=== PATIENT | female | born 1935 | race Caucasian/White ===

== ENCOUNTER 2016-11-10 12:54 | Observation (INO) ==
--- NOTE | 2016-11-10 13:03 | Emergency Department Note ---
Disposition Clinical Impression: Fall, Frail elderly, Right acetabular fracture, Osteoarthritis, Osteoporosis, Hip effusion, right, Hypokalemia, Contusion of right upper extremity, Elevated blood pressure reading, Cardiomegaly Disposition: Admitted As Inpatient Referrals: NO,PCP [Primary Care Provider] - Forms: ED Satisfaction Letter General Adult HPI - General Chief complaint: ED Extremity Injury, Lower Stated complaint: right leg pain, right hand pain Time Seen by Provider: 11/10/16 13:01 - History of Present Illness HPI Narrative: 81-year-old female was walking her dog, she slipped and fell onto her right side. She complains of hip and thigh pain. The patient describes a simple fall with No mealy prior to arrival. She is unable to bear weight on her right lower extremity. The patient is not anticoagulated. There is no history of head pain neck pain back pain chest pain shortness of breath or abdominal pain. The left lower external pain or left upper extremity pain. No bowel or bladder dysfunction or weakness numbs the arms or legs described. The patient reports she bumped her elbow but does not think she broke anything in her right upper extremity. The patient was in her usual state of health prior to the event. There is no history of syncope. No history of coughing up blood. No history of vomiting diarrhea or any other acute complaint or concern elicited. - Related Data Home Medications Medication Instructions Recorded Confirmed Atorvastatin [Lipitor] 10 mg PO HS 11/10/16 11/10/16 Lisinopril [Zestril] 5 mg PO DAILY 11/10/16 11/10/16 hydroCHLOROthiazide 12.5 mg PO DAILY 11/10/16 11/10/16 [Hydrochlorothiazide] Allergies Allergy/AdvReac Type Severity Reaction Status Date / Time morphine Allergy Nausea Verified 11/10/16 13:03 All systems ED: reviewed and negative except as stated. Physical Exam - General Limitations: no limitations General appearance: alert, anxious - Head Head exam: atraumatic, normocephalic, normal inspection - Eye Eye exam: Present: normal appearance, PERRL, EOMI. Absent: scleral icterus, conjunctival injection, nystagmus, miosis, mydriasis, periorbital swelling - ENT ENT exam: normal exam, normal oropharynx, mucous membranes moist, TM's normal bilaterally, normal external ear exam - Neck Neck exam: Present: normal inspection, full ROM, trachea midline. Absent: tenderness - Chest Chest inspection: Present: symmetric chest wall rise. Absent: tenderness - Respiratory Respiratory exam: Present: normal lung sounds bilaterally. Absent: respiratory distress, wheezes, stridor, accessory muscle use, prolonged expiratory phase - Cardiovascular Cardiovascular exam: Present: regular rate, normal rhythm, normal heart sounds - Abdominal Exam Abdominal exam: Present: soft, Non-Tender, normal bowel sounds. Absent: tenderness, distention, guarding, rebound, rigidity, trauma - Extremities Exam Extremities exam: Present: normal capillary refill. Absent: pedal edema, calf tenderness - Expanded Upper Extremity Exam Shoulder exam: Present: normal inspection, full ROM Arm exam: Present: normal inspection, full ROM Elbow exam: Present: full ROM, abrasion Forearm/Wrist exam: Present: normal inspection, full ROM Hand exam: Present: normal inspection, full ROM - Expanded Lower Extremity Exam Hip/Pelvis exam: Present: tenderness, pelvis stable. Absent: swelling, abrasion , external rotation, internal rotation, shortening Knee exam: Present: normal inspection, full ROM, tenderness. Absent: swelling, abrasion, ecchymosis Lower leg exam: Present: normal inspection, full ROM Ankle exam: Present: normal inspection, full ROM Foot/toe exam: Present: normal inspection, full ROM, other (The left upper extremity and left lower extremity are warm and well perfused and show full range of motion throughout and no evidence of trauma. The right lower extremity shows significant pain in the thigh and knee and hip areas to palpation and movement. There is no evidence of significant injury to the right upper extremity minor abrasion at the elbow but full range of motion throughout the major joints. All 4 extremities are warm and well perfused without cyanosis or significant edema there is no evidence of neurovascular or neuromuscular compromise in any extremity.) Neurovascular/Tendon exam: Present: normal capillary refill. Absent: pulse deficit, motor deficit, sensory deficit, tendon deficit, extremity cold to touch , pallor - Back Exam Back exam: Present: normal inspection, full ROM. Absent: tenderness, CVA tenderness (R), CVA tenderness (L), vertebral tenderness - Neurological Exam Neurological exam: Present: alert, oriented X3, CN II-XII intact. Absent: motor sensory deficit - Psychiatric Psychiatric exam: Present: normal affect, normal mood - Skin Skin exam: Present: warm, dry, intact, normal color. Absent: cyanosis, diaphoresis, erythema, pallor, mottled Course Vital Signs Temperature 97.6 F 11/10/16 12:55 Pulse Rate 64 11/10/16 12:55 Respiratory Rate 28 11/10/16 12:55 Blood Pressure 103/49 11/10/16 12:55 O2 Sat by Pulse Oximetry 98 11/10/16 12:55 Temperature 97.6 F 11/10/16 12:55 Pulse Rate 72 11/10/16 17:42 Respiratory Rate 18 11/10/16 17:42 Blood Pressure 180/75 11/10/16 17:42 O2 Sat by Pulse Oximetry 98 11/10/16 17:42 Oxygen Delivery Oxygen Delivery Room Air Medical Decision Making - MDM Narrative Medical decision making narrative: The patient is elderly, she sustained a hip injury with what appears to be a right hip effusion and acetabular fracture. There is no report of displacement. She may have also experienced some groin strain. The patient is unable to stand and ambulate. She has significant pain and is unable to bear weight. Given her age, acute injury, and ataxia, I on it would be appropriate to admit the patient to the hospital for observation and pain control measures with secondary orthopedic consult, and PT/OT consultations. The patient is from [place] of town. She has no ability to care for herself in the short-term. I have discussed the case with the hospitalist on-call who has accepted the patient to their care. - Lab Data Lab results reviewed: Yes I reviewed the patient's lab results. Result diagrams: 11/10/16 13:21 11/10/16 13:21 Lab Results 11/10/16 11/10/16 11/10/16 Range/Units 13:21 13:21 13:21 WBC 5.8 (4.3-11.1) K/mcL RBC 4.27 (3.82-4.97) M/mcL Hgb 12.7 (11.5-15.4) g/dL Hct 37.7 (35.3-44.9) % MCV 88.3 (83.0-100.0) fL MCH 29.7 (28.0-33.3) pg MCHC 33.7 (31.6-35.5) g/dL RDW 13.2 (11.5-14.5) % Plt Count 180 (140-400) K/mcL MPV 10.2 (9.4-12.4) fL Immature Gran % 0.3 (0-4) % Seg Neutrophils % 62.8 % Lymphocytes % 25.4 % Monocytes % 8.9 % Eosinophils % 1.6 % Basophils % 1.0 % Neutrophils # 3.6 (1.6-8.9) K/mcL Lymphocytes # 1.5 (0.6-4.6) K/mcL Monocytes # 0.5 (0.0-1.3) K/mcL Eosinophils # 0.1 (0.0-0.6) K/mcL Basophils # 0.1 (0.0-0.2) K/mcL PT 11.3 (9.4-12.1) Seconds INR 1.0 APTT 24.8 L (26.0-36.0) Seconds Sodium 139 (136-145) mEq/L Potassium 3.4 L (3.5-4.5) mEq/L Chloride 107 (98-109) mEq/L Carbon Dioxide 22 (19-29) mEq/L BUN 9 (7-20) mg/dL Creatinine 0.94 (0.57-1.11) mg/dL Est GFR ( Amer) > 60 (> 60) Est GFR (Non-Af Amer) 57 L (> 60) BUN/Creatinine Ratio 10 (6-26) Glucose 158 H (70-99) mg/dL Calculated Osmolality 290 (280-300) Calcium 9.5 (8.6-10.8) mg/dL Total Bilirubin 0.8 (0.2-1.2) mg/dL Direct Bilirubin 0.4 (0.0-0.5) mg/dL Indirect Bilirubin 0.4 (0.0-1.2) mg/dL AST 18 (5-34) Units/L ALT 22 (0-55) Units/L Alkaline Phosphatase 102 (38-126) Units/L Troponin I (0-0.03) ng/mL Serum Total Protein 7.2 (6.0-8.3) g/dL Albumin 3.5 (3.5-5.0) g/dL Globulin 3.7 H (2.4-3.5) g/dL Albumin/Globulin Ratio 0.9 L (1.1-2.2) 11/10/16 Range/Units 13:21 WBC (4.3-11.1) K/mcL RBC (3.82-4.97) M/mcL Hgb (11.5-15.4) g/dL Hct (35.3-44.9) % MCV (83.0-100.0) fL MCH (28.0-33.3) pg MCHC (31.6-35.5) g/dL RDW (11.5-14.5) % Plt Count (140-400) K/mcL MPV (9.4-12.4) fL Immature Gran % (0-4) % Seg Neutrophils % % Lymphocytes % % Monocytes % % Eosinophils % % Basophils % % Neutrophils # (1.6-8.9) K/mcL Lymphocytes # (0.6-4.6) K/mcL Monocytes # (0.0-1.3) K/mcL Eosinophils # (0.0-0.6) K/mcL Basophils # (0.0-0.2) K/mcL PT (9.4-12.1) Seconds INR APTT (26.0-36.0) Seconds Sodium (136-145) mEq/L Potassium (3.5-4.5) mEq/L Chloride (98-109) mEq/L Carbon Dioxide (19-29) mEq/L BUN (7-20) mg/dL Creatinine (0.57-1.11) mg/dL Est GFR ( Amer) (> 60) Est GFR (Non-Af Amer) (> 60) BUN/Creatinine Ratio (6-26) Glucose (70-99) mg/dL Calculated Osmolality (280-300) Calcium (8.6-10.8) mg/dL Total Bilirubin (0.2-1.2) mg/dL Direct Bilirubin (0.0-0.5) mg/dL Indirect Bilirubin (0.0-1.2) mg/dL AST (5-34) Units/L ALT (0-55) Units/L Alkaline Phosphatase (38-126) Units/L Troponin I 0.00 (0-0.03) ng/mL Serum Total Protein (6.0-8.3) g/dL Albumin (3.5-5.0) g/dL Globulin (2.4-3.5) g/dL Albumin/Globulin Ratio (1.1-2.2) - Radiology Data Radiology results reviewed: Yes I reviewed the patient's radiology results.
[2016-11-10] MEDS ORDERED: Ondansetron 4 MG/2 ML VIAL IVP ONE (13:04)
[2016-11-10] MEDS ORDERED: *HR* HYDROmorphone (PF) 1 MG/ML SYRINGE IVP ONE ×2 (13:04→18:15)
[2016-11-10 13:30] LABS: Basophils # 0.1 K/mcL (0.0-0.2); Eosinophils # 0.1 K/mcL (0.0-0.6); Eosinophils % 1.6 %; Hematocrit 37.7 % (35.3-44.9); Hemoglobin 12.7 g/dL (11.5-15.4); Immature Granulocytes % 0.3 % (0-4); Lymphocytes # 1.5 K/mcL (0.6-4.6); Lymphocytes % 25.4 %; Mean Corpuscular HGB Conc 33.7 g/dL (31.6-35.5); Mean Corpuscular Hemoglobin 29.7 pg (28.0-33.3); Mean Corpuscular Volume 88.3 fL (83.0-100.0); Mean Platelet Volume 10.2 fL (9.4-12.4); Monocytes # 0.5 K/mcL (0.0-1.3); Monocytes % 8.9 %; Neutrophils # 3.6 K/mcL (1.6-8.9); Platelet Count 180 K/mcL (140-400); Red Blood Count 4.27 M/mcL (3.82-4.97); Red Cell Distribution Width 13.2 % (11.5-14.5); Segmented Neutrophils % 62.8 %
[2016-11-10 13:36] LABS: Prothrombin Time 11.3 Seconds (9.4-12.1)
[2016-11-10 13:39] LABS: Activated Partial Thrombo Time 24.8 Seconds (26.0-36.0)
[2016-11-10 13:44] LABS: Alanine Aminotransferase 22 Units/L (0-55); Albumin 3.5 g/dL (3.5-5.0); Albumin/Globulin Ratio 0.9 (1.1-2.2); Alkaline Phosphatase 102 Units/L (38-126); Aspartate Amino Transferase 18 Units/L (5-34); BUN/Creatinine Ratio 10 (6-26); Bilirubin,Direct 0.4 mg/dL (0.0-0.5); Bilirubin,Indirect 0.4 mg/dL (0.0-1.2); Bilirubin,Total 0.8 mg/dL (0.2-1.2); Blood Urea Nitrogen 9 mg/dL (7-20); Calcium 9.5 mg/dL (8.6-10.8); Carbon Dioxide 22 mEq/L (19-29); Chloride 107 mEq/L (98-109); Globulin 3.7 g/dL (2.4-3.5); Glucose 158 mg/dL (70-99); Osmolality,Calculated 290 (280-300); Potassium 3.4 mEq/L (3.5-4.5); Sodium 139 mEq/L (136-145); Total Protein 7.2 g/dL (6.0-8.3); eGFR For African Americans > 60 (> 60); eGFR For Non-African Americans 57 (> 60)
--- NOTE | 2016-11-10 19:22 | Electrocardiograph Report ---
[facility] Test Date: 2016-11-10 Pat Name: Kim Singh Department: 102 Room: 3A53 Gender: F [employer]: Msc : 1935 Requested By: Mike Lopez Order Number: [id number] Reading MD: Alfonso Morales MD Measurements Intervals [place] Rate: 70 P: 28 VT: 207 QRS: -89 QRSD: 208 T: 85 QT: 505 QTc: 527 Interpretive Statements ELECTRONIC VENTRICULAR PACEMAKER ABNORMAL RHYTHM ECG Electronically Signed On 11-10-2016 19:21:12 EDT by Alfonso Morales MD
[2016-11-10] MEDS ORDERED: Naloxone 0.4 MG/ML INJ IVP PRN (22:35)
[2016-11-10] MEDS ORDERED: Ketorolac 30 MG/ML VIAL IVP PRN (22:35)
--- NOTE | 2016-11-10 22:35 | Internal Med History&Physical ---
Date of Encounter: 11/10/16 Time of Encounter: 22:00 Assessment and Plan (1) Right acetabular fracture Current visit: Yes Status: Acute Conservative management at this time. Orthopedic consultation, for advice and follow up Qualifiers: Encounter type: initial encounter Sublocation of acetabulum: anterior wall Fracture type: closed Fracture alignment: nondisplaced Qualified Code(s) : S32.414A - Nondisplaced fracture of anterior wall of right acetabulum, initial encounter for closed fracture (2) Hip effusion, right Current visit: Yes Status: Acute Likely related to the acetabular fracture. Orthopedic consultation (3) Hypertension Current visit: Yes Status: Chronic Continue home medications Qualifiers: Hypertension type: essential hypertension Qualified Code(s): I10 - Essential (primary) hypertension Internal Medicine - H&P: HPI Chief complaint: Right hip pain Admitted From: Emergency Dept Plans for Post Hospital Care: Home History of present illness: Ms. 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 She reports pain in the right hip which was severe when it started and now is worse on movement or weight bearing, with no significant pain if she stays still. She reports cramping pain on the medial aspect of the right thigh and lateral aspect of the left thigh. Dilaudid given in the ER helped with the pain, and she does not want dilaudid as she thinks it is too strong for her. She reports mild pain on the lateral aspect of the right shoulder, with no limitation of movement. She denies headache, chest pain, shortness of breath, abdominal pain, dysuria, change in bowels, nausea, vomiting , fever, chills. She was evaluated in the emergency department and was thought to have right acetabular fracture. She is admitted to the hospitalist service for further management. Past Med Surg Social Fam HX - Past Medical History Medical history: cancer, hyperlipidemia, hypertension Psychiatric history: no psych history - Social History Smoking Status: Never smoker Smokeless Tobacco Status: No Alcohol use: none Drug use: none - Family History Mother Hx Family Cardiac Disorders: Yes (Pacemaker, HTN, Stroke) Internal Medicine - H&P: Meds Atorvastatin [Lipitor] 10 mg PO HS 11/10/16 [History] Lisinopril [Zestril] 5 mg PO DAILY 11/10/16 [History] hydroCHLOROthiazide [Hydrochlorothiazide] 12.5 mg PO DAILY 11/10/16 [History] Allergies morphine Allergy (Verified 11/10/16 13:03) Nausea All Systems PM: A 10-system review of systems was performed and is negative for pertinent findings except as documented above in the HPI. - Constitutional Vitals: Temp Pulse Resp BP Pulse Ox 98.9 F 67 16 149/64 98 11/10/16 21:11 11/10/16 21:11 11/10/16 21:11 11/10/16 21:11 11/10/16 21:11 Exam: General: Not in acute distress at the time of my evaluation HEENT: Oral mucosa is moist. No conjunctival palor or scleral icterus Neck: No obvious neck swellings Lungs: Clear to auscultation Cardiac: Regular rate and rhythm. No significant murmurs Abdomen: Soft, non tender. Bowel sounds present Genitourinary: No osborn catheter Neurological: Alert and oriented. No gross localizing deficits Psych: Not aggressive or agitated Extremities: no significant leg edema. No significant tenderness over the right hip. Active movements at the right hip are limited and passive movements are painful. Skin: No generalized rash Internal Med - H&P Results - Labs CBC & Chem 7: 11/10/16 13:21 11/10/16 13:21 - EKG Data -: EKG Interpreted by Myself - EKG Data EKG comments: Ventricular Paced rhythm 11/11/16 04:50 - Impressions ITS Impressions Pelvis X-Ray 11/10/16 13:03 IMPRESSION: No acute pelvic fracture identified. D/ / Dennys Bloom / Dennys Bloom Interpreting Provider: Dennys Bloom Femur X-Ray 11/10/16 13:11 IMPRESSION: Degenerative change at the right hip and right knee. No acute finding in the right lower extremity. D/ / Chemo Baird MD / Chemo Baird MD Interpreting Provider: Chemo Baird MD Tibia/Fibula X-Ray 11/10/16 13:11 IMPRESSION: Degenerative change at the right hip and right knee. No acute finding in the right lower extremity. D/ / Chemo Baird MD / Chemo Baird MD Interpreting Provider: Chemo Baird MD Chest X-Ray 11/10/16 13:16 IMPRESSION: 1. Cardiomegaly. 2. No acute abnormalities are seen in the chest. D/ / 11/10/2016 14:52:23 Home Metzger MD / franko Interpreting Provider: Home Metzger MD Hip CT 11/10/16 14:55 IMPRESSION: Subtle cortical irregularity of the right anterior acetabulum suspicious for nondisplaced fracture of the anterior acetabulum in this patient with given history of fall. Moderate bilateral hip osteoarthritis and small right hip effusion. D/ / Alexx Durant MD / Alexx Durant MD Interpreting Provider: Alexx Durant MD Abdomen/Pelvis CT 11/10/16 14:56 IMPRESSION: 1. Nondisplaced fracture of the right anterior acetabulum. Please refer to pending CT right hip report for further details. 2. No acute fracture of the lumbar spine. 3. No acute intra-abdominal abnormality. 4. Status post cholecystectomy and hysterectomy. D/ / 11/10/2016 16:27:47 Marilu Olivas MD / wili Interpreting Provider: Marilu Olivas MD Lumbar Spine CT 11/10/16 14:56
[2016-11-10] MEDS ORDERED: Acetaminophen 325 MG TABLET PO PRN (22:39)
[2016-11-10] MEDS: Famotidine 20 MG TABLET PO SCH (23:09)
[2016-11-11 00:27] LABS: Bilirubin,Urine Negative (Negative); Blood,Urine Negative (Negative); Clarity,Urine Clear (Clear); Color,Urine Yellow (Yellow); Glucose,Urine (UA) Normal (Normal); Ketones,Urine Negative (Negative); Leukocyte Esterase,Urine Negative (Negative); Nitrite,Urine Negative (Negative); Protein,Urine Negative (Neg-Trace); Specific Gravity,Urine > 1.030 (1.010-1.025); Urobilinogen,Urine Normal (Normal)
[2016-11-11] MEDS: traMADol 50 MG TABLET PO PRN ×2 (02:40→22:09)
[2016-11-11] MEDS: Famotidine 20 MG TABLET PO SCH ×2 (08:28→22:07)
[2016-11-11] MEDS: hydroCHLOROthiazide 25 MG TABLET PO SCH (08:28)
[2016-11-11] MEDS ORDERED: *HR* Morphine 2 MG/ML SYRINGE IVP PRN (12:31)
[2016-11-11] MEDS ORDERED: Ondansetron 4 MG/2 ML VIAL IVP PRN (12:31)
--- NOTE | 2016-11-11 12:34 | Internal Med Progress Note ---
Date of Encounter: 11/11/16 Time of Encounter: 12:32 - Assessment and plan (1) Right acetabular fracture Current Visit: Yes Status: Acute Assessment and plan: Status post mechanical fall. Right hip CT shows anterior acetabular fracture with joint effusion, which may be posttraumatic versus related to osteoarthritis. Orthopedic surgery consulted, will follow-up recommendations. Pain control with when necessary IV Toradol and morphine. Supportive care and fall precautions. Physical therapy evaluation. Qualifiers: Encounter type: initial encounter Sublocation of acetabulum: anterior wall Fracture type: closed Fracture alignment: nondisplaced Qualified Code(s) : S32.414A - Nondisplaced fracture of anterior wall of right acetabulum, initial encounter for closed fracture (2) Osteoarthritis Current Visit: Yes Status: Chronic Qualifiers: Osteoarthritis location: hip Osteoarthritis type: primary Laterality: bilateral Qualified Code(s): M16.0 - Bilateral primary osteoarthritis of hip (3) Hypokalemia Current Visit: Yes Status: Acute Assessment and plan: Supplement with oral potassium chloride and continue to monitor. (4) Hypertension Current Visit: Yes Status: Chronic Assessment and plan: Blood pressure well controlled. Resume home medications. Qualifiers: Hypertension type: essential hypertension Qualified Code(s): I10 - Essential (primary) hypertension - Subjective Interval history: Very pleasant elderly female, reports right groin, thigh and shoulder pain from her recent fall; no chest pain, dyspnea, emesis; also reports being very hungry ; patient is from [place] and has no family in [place], loves alone at home; - Constitutional Vitals: Temp Pulse Resp BP Pulse Ox 98.0 F 61 17 131/63 96 11/11/16 11:34 11/11/16 11:34 11/11/16 11:34 11/11/16 11:34 11/11/16 11:34 General appearance: Present: A&O X 3, answers questions appropriately - Respiratory Respiratory exam: Present: CTAB. Absent: accessory muscle use, rales, rhonchi, wheezes - Cardiovascular Cardiovascular exam: Present: RRR, +S1, +S2. Absent: diastolic murmur, gallop, rubs, systolic murmur - GI/Abdominal GI/Abdominal exam: Present: normal bowel sounds, soft, no peritoneal signs. Absent: distended, tenderness - Extremities Exam Extremities exam: Present: full ROM (limited at right hip but able to straight leg raise upto 45 degrees), warm, radial pulses palpable and symetrical. Absent : calf tenderness, cyanotic, pedal edema Internal Medicine: Result - Labs CBC & Chem 7: 11/10/16 13:21 11/10/16 13:21 Labs: Urine 11/11/16 Range/Units 00:22 Urine Color Yellow (Yellow) Urine Clarity Clear (Clear) Urine pH 6.0 (5.0-8.0) pH Units Ur Specific [place] > 1.030 H (1.010-1.025) Urine Protein Negative (Neg-Trace) mg/dL Urine Glucose (UA) Normal (Normal) mg/dL - ABG Interpretation ABG results: PT/INR, D-dimer PT 11.3 Seconds (9.4-12.1) 11/10/16 13:21 Consult Discharge Plan - Plan Referrals: NO,PCP [Primary Care Provider] -
--- NOTE | 2016-11-11 21:36 | Orthopedic Consult Note ---
Date of Encounter: 11/11/16 Time of Encounter: 21:34 Assessment and Plan (1) Right acetabular fracture Current Visit: Yes Status: Acute I did discuss the diagnosis in detail with the patient. She has a right small, nondisplaced, posterior wall acetabulum fracture. I did discuss treatment options and my recommendation is for nonoperative management with observation and serial x-rays as well as toe-touch weightbearing to the right lower extremity with the assistance of physical therapy. I will see her in the office in one week's time for repeat x-rays. Depending on her home situation and how well she does with physical therapy, she may require a short-term rehabilitation facility. The patient is aware that any displacement may require surgical fixation, though this is not likely to be the case. Qualifiers: Encounter type: initial encounter Sublocation of acetabulum: anterior wall Fracture type: closed Fracture alignment: nondisplaced Qualified Code(s) : S32.414A - Nondisplaced fracture of anterior wall of right acetabulum, initial encounter for closed fracture History of Present Illness HPI: Ms. Singh is a 81 year old female who is admitted after a fall while walking her dog. She sustained right hip and groin pain. She was admitted to the hospitalist and imaging demonstrated a small posterior wall right acetabular fracture which is nondisplaced. Orthopedics was counseled that to assist in evaluation and management. The patient complains of this is isolated pain which is sharp and worse with movement and better at rest. Ambulation causes significant pain. She denies any numbness, tingling, or any other associated signs or symptoms. She denies any headaches, neck pain, chest pain, abdominal pain, bilateral upper extremity pain, and left lower extremity pain. The patient has no other complaints. No other modifying factors. Past Med Surg Social Fam HX - Past Medical History Medical history: cancer, hyperlipidemia, hypertension Psychiatric history: no psych history - Social History Smoking Status: Never smoker Smokeless Tobacco Status: No Alcohol use: none Drug use: none - Family History Mother Hx Family Cardiac Disorders: Yes (Pacemaker, HTN, Stroke) Medications and Allergies Atorvastatin [Lipitor] 10 mg PO HS 11/10/16 [History] Lisinopril [Zestril] 5 mg PO DAILY 11/10/16 [History] hydroCHLOROthiazide [Hydrochlorothiazide] 12.5 mg PO DAILY 11/10/16 [History] Allergies morphine Allergy (Verified 11/10/16 13:03) Nausea All Systems Reviewed: Constitutional and musculoskeletal systems were reviewed and are negative unless otherwise stated in history of present illness. Physical Exam - Constitutional Vitals: Temp Pulse Resp BP Pulse Ox 98.4 F 73 17 159/70 94 11/11/16 19:07 11/11/16 19:07 11/11/16 19:07 11/11/16 19:07 11/11/16 19:07 Constitutional -Vitals reviewed -The patient is well developed and well nourished. -Mood is pleasant. -The patient is well groomed. Psychiatric -The patient is fully alert and oriented x 3. Respiratory: -Respiratory effort normal Abdomen: -Soft abdomen -Non tender -Non distended: Left upper extremity: -No deformities. The overlying skin is intact. No obvious signs of acute trauma. -No tenderness to palpation throughout. -No significant pain with passive motion of the shoulder, elbow, wrist, and fingers within the limits of the bed. -Able to make an "OK" sign, cross the index and long fingers, and extend the thumb. -Sensation grossly intact to light touch throughout the median, radial, and ulnar distributions. -Radial pulse is present; Fingers have good capillary refill. Right upper extremity: -No deformities. The overlying skin is intact. No obvious signs of acute trauma. -No tenderness to palpation throughout. -No significant pain with passive motion of the shoulder, elbow, wrist, and fingers within the limits of the bed. -Able to make an "OK" sign, cross the index and long fingers, and extend the thumb. -Sensation grossly intact to light touch throughout the median, radial, and ulnar distributions. -Radial pulse is present; Fingers have good capillary refill. Left lower extremity: -No deformities. The overlying skin is intact. No obvious signs of acute trauma. -No tenderness to palpation throughout. -No pain with passive motion of the hip, knee, ankle, and toes within the limits of the bed. -No pain with axial loading of the thigh. -Able to dorsiflex and plantarflex the ankle and toes. -Sensation is grossly intact to light touch throughout the sural, saphenous, superficial peroneal, and deep peroneal distributions. -Toes have good capillary refill. Right lower extremity: -No deformities. The overlying skin is intact. No obvious signs of acute trauma. -No tenderness to palpation throughout. -No pain with passive motion of knee, ankle, and toes within the limits of the bed. -Significant pain with axial loading and passive motion of the right hip. -No instability of the right hip is appreciated. -Able to dorsiflex and plantarflex the ankle and toes. -Sensation is grossly intact to light touch throughout the sural, saphenous, superficial peroneal, and deep peroneal distributions. -Toes have good capillary refill. Diagnostic Imaging: I did personally review and interpret x-rays of the pelvis, femur, as well as a CT scan of the right hip which does show a nondisplaced small posterior wall acetabulum with good congruency of the hip joint. Results - Labs Result Diagrams: 11/10/16 13:21 11/10/16 13:21 Labs: Abnormal lab results APTT 24.8 Seconds (26.0-36.0) L 11/10/16 13:21 Potassium 3.4 mEq/L (3.5-4.5) L 11/10/16 13:21 Est GFR (Non-Af Amer) 57 (> 60) L 11/10/16 13:21 Glucose 158 mg/dL (70-99) H 11/10/16 13:21 Globulin 3.7 g/dL (2.4-3.5) H 11/10/16 13:21 Albumin/Globulin Ratio 0.9 (1.1-2.2) L 11/10/16 13:21 Ur Specific [place] > 1.030 (1.010-1.025) H 11/11/16 00:22 All other labs normal. Consult Discharge Plan - Plan Referrals: NO,PCP [Primary Care Provider] -
--- NOTE | 2016-11-11 21:49 | Orthopedic Consult Note ---
Date of Encounter: 11/11/16 Time of Encounter: 21:47 Assessment and Plan (1) Right acetabular fracture Current Visit: Yes Status: Acute Qualifiers: Encounter type: initial encounter Sublocation of acetabulum: anterior wall Fracture type: closed Fracture alignment: nondisplaced Qualified Code(s) : S32.414A - Nondisplaced fracture of anterior wall of right acetabulum, initial encounter for closed fracture History of Present Illness HPI: Ms. Singh is a 81 year old female who is admitted to the hospitalist for significant low back pain which radiates into the hips, buttocks, and lower extremities. This is made it quite difficult for her to walk and is occurred over the last 4 days or so. She has not had any workup or treatment and was admitted for such. Orthopedics was counseled that after CT scan of the left hip did show a possible loose body. On my evaluation the patient corroborates the above history. She says the pain is sharp, achy, and radiating. She indicates that there is no associated signs or symptoms. She indicates that she has had some feelings of illness as well as a low-grade temperature recently. She denies any other complaints Past Med Surg Social Fam HX - Past Medical History Medical history: cancer, hyperlipidemia, hypertension Psychiatric history: no psych history - Social History Smoking Status: Never smoker Smokeless Tobacco Status: No Alcohol use: none Drug use: none - Family History Mother Hx Family Cardiac Disorders: Yes (Pacemaker, HTN, Stroke) Medications and Allergies Atorvastatin [Lipitor] 10 mg PO HS 11/10/16 [History] Lisinopril [Zestril] 5 mg PO DAILY 11/10/16 [History] hydroCHLOROthiazide [Hydrochlorothiazide] 12.5 mg PO DAILY 11/10/16 [History] Allergies morphine Allergy (Verified 11/10/16 13:03) Nausea All Systems Reviewed: A 10-system review of systems was performed and is negative for pertinent findings except as documented above in the HPI. Physical Exam - Constitutional Vitals: Temp Pulse Resp BP Pulse Ox 98.4 F 73 17 159/70 94 11/11/16 19:07 11/11/16 19:07 11/11/16 19:07 11/11/16 19:07 11/11/16 19:07 Results - Labs Result Diagrams: 11/10/16 13:21 11/10/16 13:21 Labs: Abnormal lab results APTT 24.8 Seconds (26.0-36.0) L 11/10/16 13:21 Potassium 3.4 mEq/L (3.5-4.5) L 11/10/16 13:21 Est GFR (Non-Af Amer) 57 (> 60) L 11/10/16 13:21 Glucose 158 mg/dL (70-99) H 11/10/16 13:21 Globulin 3.7 g/dL (2.4-3.5) H 11/10/16 13:21 Albumin/Globulin Ratio 0.9 (1.1-2.2) L 11/10/16 13:21 Ur Specific [place] > 1.030 (1.010-1.025) H 11/11/16 00:22 All other labs normal. Consult Discharge Plan - Plan Referrals: NO,PCP [Primary Care Provider] -
[2016-11-12] MEDS: Famotidine 20 MG TABLET PO SCH ×2 (08:35→20:04)
[2016-11-12] MEDS: hydroCHLOROthiazide 25 MG TABLET PO SCH (08:35)
--- NOTE | 2016-11-12 12:24 | Internal Med Progress Note ---
Date of Encounter: 11/12/16 Time of Encounter: 12:23 - Assessment and plan (1) Right acetabular fracture Current Visit: Yes Status: Acute Assessment and plan: Status post mechanical fall. Right hip CT shows anterior acetabular fracture with joint effusion, which may be posttraumatic versus related to osteoarthritis. Orthopedic surgery consult appreciated, no surgical intervention at this time, recommend outpatient f/up in 1 week, for repeat XRays. PT evaluation noted- recommend HHS. Pain is better controlled, continue PRN Oxycodone. Supportive care and fall precautions. Qualifiers: Encounter type: initial encounter Sublocation of acetabulum: anterior wall Fracture type: closed Fracture alignment: nondisplaced Qualified Code(s) : S32.414A - Nondisplaced fracture of anterior wall of right acetabulum, initial encounter for closed fracture (2) Osteoarthritis Current Visit: Yes Status: Chronic Qualifiers: Osteoarthritis location: hip Osteoarthritis type: primary Laterality: bilateral Qualified Code(s): M16.0 - Bilateral primary osteoarthritis of hip (3) Hypokalemia Current Visit: Yes Status: Acute (4) Hypertension Current Visit: Yes Status: Chronic Assessment and plan: Blood pressure well controlled. Resume home medications. Qualifiers: Hypertension type: essential hypertension Qualified Code(s): I10 - Essential (primary) hypertension - Subjective Interval history: Reports almost complete resolution of right hip and groin pain; able to sit up in chair today and worked with PT, able to ambulate with walker; - Constitutional Vitals: Temp Pulse Resp BP Pulse Ox 98.0 F 60 18 159/77 96 11/12/16 10:58 11/12/16 10:58 11/12/16 10:58 11/12/16 10:58 11/12/16 10:58 General appearance: Present: A&O X 3, answers questions appropriately - Respiratory Respiratory exam: Present: CTAB. Absent: accessory muscle use, rales, rhonchi, wheezes - Cardiovascular Cardiovascular exam: Present: RRR, +S1, +S2. Absent: diastolic murmur, gallop, rubs, systolic murmur - Extremities Exam Extremities exam: Present: full ROM (no local swelling/ecchymoses/erythema over right hip/thigh), warm, radial pulses palpable and symetrical. Absent: calf tenderness, cyanotic, pedal edema Internal Medicine: Result - Labs CBC & Chem 7: 11/10/16 13:21 11/10/16 13:21 - ABG Interpretation ABG results: PT/INR, D-dimer PT 11.3 Seconds (9.4-12.1) 11/10/16 13:21 Consult Discharge Plan - Plan Referrals: NO,PCP [Primary Care Provider] -
--- NOTE | 2016-11-13 08:53 | Orthopedics Progress Note ---
Date of Encounter: 11/13/16 Time of Encounter: 08:52 - Assessment and Plan (1) Right acetabular fracture Current Visit: Yes Status: Acute I did discuss the diagnosis in detail with the patient. She has a right small, nondisplaced, posterior wall acetabulum fracture. I did discuss treatment options and my recommendation is for nonoperative management with observation and serial x-rays as well as toe-touch weightbearing to the right lower extremity with the assistance of physical therapy. I will see her in the office in one week's time for repeat x-rays. Depending on her home situation and how well she does with physical therapy, she may require a short-term rehabilitation facility. The patient is aware that any displacement may require surgical fixation, though this is not likely to be the case. Qualifiers: Encounter type: initial encounter Sublocation of acetabulum: anterior wall Fracture type: closed Fracture alignment: nondisplaced Qualified Code(s) : S32.414A - Nondisplaced fracture of anterior wall of right acetabulum, initial encounter for closed fracture Subjective Interval history: S: The patient is doing very well. Pain is controlled and she is doing well with toe-touch weightbearing. O: Afebrile and vital signs are stable. Mild pain with log roll and axial loading of the right hip. She can flex and extend the ankle and toes and the foot is sensate and well- perfused. A: Right posterior wall acetabulum fracture, nondisplaced P: Continue toe-touch weightbearing, and physical therapy. Orthopedically stable for discharge. Follow-up in one week for a repeat x-ray. Objective Vital signs: Vital Signs Temp Pulse Resp BP Pulse Ox 11/13/16 06:51 97.8 F 74 16 105/68 95 11/13/16 00:26 97.4 F L 63 16 103/62 94 11/12/16 19:54 97 11/12/16 18:47 97.4 F L 71 16 145/70 96 11/12/16 14:56 98.0 F 70 16 158/72 98 11/12/16 10:58 98.0 F 60 18 159/77 96 Intake and Output 11/12/16 11/13/16 11/13/16 23:59 07:59 15:59 Intake Total 490 / 490 Balance 490 / 490 Intake: Oral 490 / 490 Other: Meal Dinner Percent of Meal Consumed 95% # Voids 1 1 Weight 84.8 kg Patient Weight 11/13/16 23:59 Weight 84.8 kg - Labs CBC & BMP: 11/10/16 13:21 11/10/16 13:21 Labs: Abnormal lab results APTT 24.8 Seconds (26.0-36.0) L 11/10/16 13:21 Potassium 3.4 mEq/L (3.5-4.5) L 11/10/16 13:21 Est GFR (Non-Af Amer) 57 (> 60) L 11/10/16 13:21 Glucose 158 mg/dL (70-99) H 11/10/16 13:21 POC Glucose 93 (58-89) H 11/11/16 11:18 Globulin 3.7 g/dL (2.4-3.5) H 11/10/16 13:21 Albumin/Globulin Ratio 0.9 (1.1-2.2) L 11/10/16 13:21 Ur Specific [place] > 1.030 (1.010-1.025) H 11/11/16 00:22 Consult Discharge Plan - Plan Referrals: NO,PCP [Primary Care Provider] -
[2016-11-13] MEDS: hydroCHLOROthiazide 25 MG TABLET PO SCH (08:58)
[2016-11-13] MEDS: Famotidine 20 MG TABLET PO SCH (09:01)
[2016-11-13 11:33] VITALS: BP 112/56
--- NOTE | 2016-11-13 12:28 | Discharge Summary ---
Date of Encounter: 11/13/16 Time of Encounter: 12:24 - Discharge Diagnosis (1) Right acetabular fracture Priority: Primary Status: Acute Qualifiers: Encounter type: initial encounter Sublocation of acetabulum: anterior wall Fracture type: closed Fracture alignment: nondisplaced Qualified Code(s) : S32.414A - Nondisplaced fracture of anterior wall of right acetabulum, initial encounter for closed fracture (2) Osteoarthritis Priority: Secondary Status: Chronic Qualifiers: Osteoarthritis location: hip Osteoarthritis type: primary Laterality: bilateral Qualified Code(s): M16.0 - Bilateral primary osteoarthritis of hip (3) Hypokalemia Priority: Primary Status: Resolved (4) Hypertension Priority: Secondary Status: Chronic Qualifiers: Hypertension type: essential hypertension Qualified Code(s): I10 - Essential (primary) hypertension - Discharge Medications Prescriptions: Walker - Rollator [ROLLATOR] 1 each .ROUTE AD #1 each Home Medications: Atorvastatin [Lipitor] 10 mg PO HS 11/10/16 [History] Lisinopril [Zestril] 5 mg PO DAILY 11/10/16 [History] hydroCHLOROthiazide [Hydrochlorothiazide] 12.5 mg PO DAILY 11/10/16 [History] Acetaminophen [Tylenol] 650 mg PO Q6HR PRN #0 tablet 11/13/16 [Rx] Walker - Rollator [ROLLATOR] 1 each .ROUTE AD #1 each 11/13/16 [Rx] Allergies/Adverse Reactions: Allergies morphine Allergy (Verified 11/10/16 13:03) Nausea Date of admission: 11/10/16 18:56 Primary care physician: PCP NO Consults: 11/10/16 22:08 Consult to Business And Marketing Teacher [CONS] Routine Reason for SW Consult: Lives 4hr away and unsure how she is going to care for herself or property if she cant move around very well. 11/10/16 22:40 Consult to Orthopedic Surgery [CONS] Routine Consulting Provider: [facility]oped[facility] Reason for Consult: Right acetabular fracture Call Completed: No 11/11/16 12:10 Consult to Physical Therapy [CONS] Routine Comment: Evaluate, develop and implement POC Reason for Consult: Right hip pain s/p mechanical fall Discharging clinician: Debo Talley Anticipated date of discharge: 11/13/16 - Patient Status Disposition: Home, Self-Care Condition: Fair Functional capacity at discharge: uses cane/walker Overall status at discharge: patient is progressing back to baseline - Discharge Instructions Follow Up With: NO,PCP [Primary Care Provider] - ( 11/26/16 @ 10:30AM- [facility]: [id number] - BRING INSURANCE CARD, PHOTO ID, LIST OF MEDS. PLEASE MAKE FOLLOW UP APPOINTMENT WITH PCP.) Additional Instructions: F/up with PCP in 1-2 weeks F/up with Orthopedics in 1 week - Diet and Activity Activity: ambulate only with your walker Diet: low fat, low cholesterol, low salt diet Hospital course: Ms. Singh is a 81 year old female admitted after sustaining a mechanical fall while walking her dog. CT hip showed right anterior acetabular fracture and she was started on pain control with when necessary oral oxycodone and IV morphine. Orthopedics was consulted, recommended no surgical intervention and outpatient follow-up for repeat x-rays. Patient's pain was significantly better by the next day and she was able to participate with physical therapy, who recommended home health services. Patient is originally from [place] and would like to follow up with orthopedics closer to home. career services officer has been consulted and this has been arranged. Patient is currently medically stable for discharge with outpatient follow-up. - Time Spent with Patient Total time spent providing and/or coordinating discharge services: Greater than 30 minutes (45 min) - Constitutional Vitals: Temp Pulse Resp BP Pulse Ox 98 F 78 16 112/56 96 11/13/16 10:07 11/13/16 10:07 11/13/16 10:07 11/13/16 10:07 11/13/16 10:07 General appearance: Present: A&O X 3, answers questions appropriately - Respiratory Respiratory exam: Present: CTAB. Absent: accessory muscle use, rales, rhonchi, wheezes - Cardiovascular Cardiovascular exam: Present: RRR, +S1, +S2. Absent: diastolic murmur, gallop, rubs, systolic murmur
[2016-11-14] MEDS ORDERED: Famotidine 20 MG TABLET PO SCH (09:00)
== END 2016-11-13 13:45 | disposition home or self-care (01) ==
LOC: EMEROO 12:54 → 3ANU 12:54 → SUATTDRO 18:56 → 3ANU 20:50 → 3NENU 11-11 17:56
PROVIDERS: ADMIT Internal Medicine Endocrinology, Diabetes & Metabolism; ATTEND Internal Medicine